=== PATIENT | female | born 1960 | race Caucasian/White ===

== ENCOUNTER 2020-06-16 15:49 | Outpatient (REF) | payer OTHER, SELFPAY ==
[2020-06-16 17:19] LABS: Anion Gap 7.7 mmol/L (3-11); BUN 22 mg/dL (7-18); CO2 30.3 mmol/L (21.0-32.0); CREATININE 1.05 mg/dL (0.55-1.02); Calcium 9.4 mg/dL (8.5-10.1); Calculated LDL 180 mg/dL (<100); Chloride 102 mmol/L (98-107); Cholesterol 263 mg/dL (<200); Estimated GFR 53.46 (mL/min/1.73m2); Glucose 107 mg/dL (74-106); HDL Cholesterol 63 mg/dL (40-60); Sodium 140 mmol/L (136-145); Triglyceride 104 mg/dL (<150)
== END 2020-06-16 16:09 ==
LOC: NCHCN 15:49
PROVIDERS: Visit Provider Nurse Practitioner Family
DX: I10 Essential (primary) hypertension (principal); E78.5 Hyperlipidemia, unspecified
CPT/HCPCS: 80048; 80061

== ENCOUNTER 2020-07-12 01:49 | Outpatient (CLI) | payer OTHER, SELFPAY ==
--- NOTE | 2020-07-12 12:49 | DI.MAMMO_ITS ---
EXAM: MG MAMMO SCREENING CLINICAL HISTORY: SCREENING, Z12.39 TECHNIQUE: Bilateral full field digital CC and MLO mammographic images were obtained with 3D tomosyn thesis and utilizing computer aided detection (CAD). COMPARISON: Available for comparison. FINDINGS: Masses/Architectural Distortion: None seen. The asymmetric density in the outer right breast has irre gular borders and measures 1.1 cm in length. It appears more prominent compared to prior examinations . Microcalcifications: No suspicious pleomorphic-type are seen. Skin Thickening/Nipple Retraction: None. IMPRESSION: 1. 1.1 cm irregular asymmetric density in the outer right breast. 2. This area should be further evaluated with spot compression views and a right breast ultrasound. BI-RADS Category 0 - Assessment Incomplete: Need additional imaging evaluation Breast Density - Category B - Scattered areas of fibroglandular density Breast density category C or D implies that the patient has dense breast tissue. Dense breast tissue is very common and is not abnormal but dense breast tissue can make it harder to find cancer on a ma mmogram. Also, dense breast tissue may increase their breast cancer risk. This information about the result of the mammogram report was provided to the patient to raise their awareness. Use this report when you speak with the patient about their risks for breast cancer, which includes their family hist ory. At that time, you may recommend for more screening tests (Ultrasound or MRI) as they might be us eful based on their risk. A negative radiographic report should not delay biopsy if a dominant or clinically suspicious mass is present. Up to ten percent of cancers are not identified on mammography. A negative report may reinforce clinical impression. Adenosis and dense breasts may obscure an underlying neoplasm. False positive reports average 6 to 10%. Patient will receive a letter notifying them of these results.
== END 2020-07-12 02:09 ==
PROVIDERS: PCP Nurse Practitioner Family; Visit Provider Nurse Practitioner Family
DX: Z12.31 Encounter for screening mammogram for malignant neoplasm of breast (principal); N64.89 Other specified disorders of breast
CPT/HCPCS: 77063; 77067

== ENCOUNTER 2020-07-21 12:27 | Outpatient (REF) | payer OTHER, SELFPAY ==
--- NOTE | 2020-07-21 11:45 | PAPFT_PTH ---
PATIENT: Malgorzata Wan LOC: [facility] U#:[id number] AGE/SX: 60/F ROOM: RE07/21/[address]: Adele Ornelas : 1960 BED: DIS: 07/21/2020 SPEC #: [id number] RECD: 07/21/20 13:03 STATUS: JIMENA MOREAU #: [id number] COOKIE: 07/21/20 11:[address]: Adele Ornelas [facility] Cytology RECD BY: Gloria Guerra Tissues: 1 - CX/ENDOCX FOR PAP SMEARS Procedures: PAP THIN PREP/UVM Screening HPV DNA PROBE Comments: [id number]
== END 2020-07-21 12:47 ==
LOC: NCHCN 12:27
PROVIDERS: PCP Nurse Practitioner Family; Visit Provider Nurse Practitioner Family
DX: Z12.4 Encounter for screening for malignant neoplasm of cervix (principal); Z00.00 Encounter for general adult medical examination without abnormal findings; Z11.51 Encounter for screening for human papillomavirus (HPV)
CPT/HCPCS: 88142; 87624

== ENCOUNTER 2020-07-27 01:24 | Outpatient (CLI) | payer OTHER, SELFPAY ==
--- NOTE | 2020-07-27 | DI.US_ITS ---
EXAM: US BREAST RT LIMITED CLINICAL HISTORY: F/U MAMMO, IRREGULAR ASYMMETRIC DENSITY OUTER RT BREAST. TECHNIQUE: Limited ultrasound of the right breast was performed. COMPARISON: Prior mammograms were reviewed. There is spot compression views were reviewed FINDINGS: There is no evidence of solid or significant cystic lesion. This implies that the nodular density is most probably a benign intramammary lymph node. IMPRESSION: As above. Appropriate follow-up is repeat right breast imaging in 6 months, distant fluid repeat rig ht breast mammogram and ultrasound. Earlier imaging would be recommended if there is a self detected breast change noted. Findings are recommendations were discussed by myself with the patient today. BI-RADS Category 3 - 6 month - Probably Benign Finding: Recommend follow-up mammography in 6 months Breast Density - Category B - Scattered areas of fibroglandular density Breast density Category C or D implies that the patient has dense breast tissue. Dense breast tissue can make it harder to find cancer on a mammogram. Dense breast tissue is also associated with an incr eased risk of breast cancer. This information about the result of the mammogram report was provided to the patient to raise their awareness. Use this report when you speak with the patient about their risks for breast cancer, which includes their family history. At that time, you may recommend additional screening tests (Ultrasoun d or MRI) as these tests may add significant information. A negative radiographic report should not delay biopsy if a dominant or clinically suspicious mass is present. Up to ten percent of cancers are not identified on mammography. A negative report may reinforce clinical impression. Adenosis and dense breasts may obscure an underlying neoplasm. False positive reports average 6 to 10%. Patient will receive a letter notifying them of these results.
--- NOTE | 2020-07-27 13:54 | DI.MAMMO_ITS ---
EXAM: MG MAMMO SCREEN CALL BACK UNI-RIGHT CLINICAL HISTORY: F/U MAMMO, IRREGULAR ASYMMETRIC DENSITY OUTER RT BREAST. TECHNIQUE: SPOT-COMPRESSION 3D VIEWS BREAST COMPARISON: Prior mammograms WERE REVIEWED. FINDINGS: Nodule persists. Has appearance of probable benign lymph node. Ultrasound of the right breast performed following today's additional mammographic views reveals no s ignificant focal findings, further evidence that it is probably benign lymph node. IMPRESSION: Benign findings as above. Appropriate follow-up is repeat right breast imaging in 6 months, this to include repeat right breast mammogram and ultrasound. Findings are recommendations were discussed by myself with the patient today. BI-RADS Category 3 - 6 month - Probably Benign Finding: Recommend follow-up mammography and ultrasoun d in 6 month Breast Density - Category B - Scattered areas of fibroglandular density Breast density Category C or D implies that the patient has dense breast tissue. Dense breast tissue can make it harder to find cancer on a mammogram. Dense breast tissue is also associated with an incr eased risk of breast cancer. This information about the result of the mammogram report was provided to the patient to raise their awareness. Use this report when you speak with the patient about their risks for breast cancer, which includes their family history. At that time, you may recommend additional screening tests (Ultrasoun d or MRI) as these tests may add significant information. A negative radiographic report should not delay biopsy if a dominant or clinically suspicious mass is present. Up to ten percent of cancers are not identified on mammography. A negative report may reinforce clinical impression. Adenosis and dense breasts may obscure an underlying neoplasm. False positive reports average 6 to 10%. Patient will receive a letter notifying them of these results.
== END 2020-07-27 01:44 ==
PROVIDERS: PCP Nurse Practitioner Family; Visit Provider Nurse Practitioner Family
DX: R92.8 Other abnormal and inconclusive findings on diagnostic imaging of breast (principal)
CPT/HCPCS: 76642; 77063; 77067

== ENCOUNTER 2021-01-30 02:12 | Outpatient (CLI) | payer OTHER, SELFPAY ==
--- NOTE | 2021-01-30 | DI.US_ITS ---
Exam(s) MG MAMMO DIAGNOSTIC UNI US BREAST RT LIMITED EXAM: US BREAST RT LIMITED CLINICAL HISTORY: F/U ABNL MAMMO, 6 MO F/U,R92.8 TECHNIQUE: Ultrasound performed using standard protocol. COMPARISON: US US BREAST RT LIMITED from 07/27/2020 FINDINGS: Right breast mammogram is interpreted in conjunction with additional mammographic views of the right breast and right breast ultrasound. Prior mammogram of June 2020 showed a vaguely nodular asymmet lionel radiodensity of the upper outer quadrant of the right breast. No definite mass was identified ma mmographically or by ultrasound examination at that time. On today's examination, the area of asymmetric density with a vaguely nodular appearance is unchanged . No new mass or clumped microcalcification in the right breast. No right breast mass or cyst ident ified on ultrasound. IMPRESSION: No specific evidence of malignancy at this time. I would suggest that routine screening examination s resume with a bilateral mammogram in 6 months. BI-RADS Cat 3 - 6 month - Probably Benign Finding: Recommend follow-up imaging in 6 months Breast Density - Category B - Scattered areas of fibroglandular density DATA REPOSITORY:
== END 2021-01-30 02:32 ==
PROVIDERS: PCP Nurse Practitioner Family; Visit Provider Nurse Practitioner Family
DX: R92.8 Other abnormal and inconclusive findings on diagnostic imaging of breast (principal)
CPT/HCPCS: 76642; 77061; 77065; G0279

== ENCOUNTER 2021-03-30 11:27 | Outpatient (CLI) | payer OTHER, SELFPAY ==
--- NOTE | 2021-03-30 | DI.RAD_ITS ---
Exam(s) XR TOE RT GREAT EXAM: XR TOE RT GREAT CLINICAL HISTORY: RT GREAT TOE PAIN, M79.676, BUNION VS STRESS FX. TECHNIQUE: 2D digital imaging was performed. COMPARISON: No exams were available for comparison FINDINGS: BONES: No acute fracture is present. No bony destructive lesion is seen. JOINTS: No dislocation present. There is mild narrowing of the 1st MTP joint. SOFT TISSUE: Normal. IMPRESSION: Mild joint space narrowing of the 1st MTP joint. DATA REPOSITORY: RADIATION DOSE DELIVERED:
== END 2021-03-30 11:47 ==
PROVIDERS: PCP Nurse Practitioner Family; Visit Provider Physician Assistant Medical
DX: M79.676 Pain in unspecified toe(s) (principal); M19.071 Primary osteoarthritis, right ankle and foot
CPT/HCPCS: 73660

== ENCOUNTER → 2022-02-14 02:05 | Outpatient (CLI) | payer OTHER, SELFPAY ==
--- NOTE | 2022-02-14 08:30 | DI.MAMMO_ITS ---
Exam(s) MAMMO SCREENING EXAM: MAMMO SCREENING CLINICAL HISTORY: SCREENING, Z12.39 TECHNIQUE: Bilateral full field digital CC and MLO mammographic images were obtained with 3D tomosyn thesis and utilizing computer aided detection (CAD). COMPARISON: Available for comparison. FINDINGS: Left breast: Masses/Architectural Distortion: None seen. Microcalcifications: No suspicious pleomorphic-type are seen. Skin Thickening/Nipple Retraction: None. Right breast: Masses/Architectural Distortion: Stable circumscribed nodule lateral right breast. Microcalcifications: No suspicious pleomorphic-type are seen. Skin Thickening/Nipple Retraction: None. IMPRESSION: 1. No significant interval change with no specific features of malignancy noted. 2. Unless there is more urgent need, screening mammography is recommended, as per [place] [employer] guidelines. BI-RADS Category 2 - Benign Findings Breast Density - Category B - Scattered areas of fibroglandular density A negative radiographic report should not delay biopsy if a dominant or clinically suspicious mass is present. Up to ten percent of cancers are not identified on mammography. A negative report may reinforce clinical impression. Adenosis and dense breasts may obscure an underlying neoplasm. False positive reports average 6 to 10%. Patient will receive a letter notifying them of these results.
== END ==
PROVIDERS: PCP Nurse Practitioner Family; Visit Provider Nurse Practitioner Family
DX: Z12.31 Encounter for screening mammogram for malignant neoplasm of breast (principal)
CPT/HCPCS: 77063; 77067

== ENCOUNTER 2022-02-21 16:14 | Outpatient (REF) | payer OTHER, SELFPAY ==
[2022-02-21 19:44] LABS: Anion Gap 9.2 mmol/L (3-11); BUN 23 mg/dL (7-18); CO2 29.8 mmol/L (21.0-32.0); CREATININE 1.1 mg/dL (0.55-1.02); Calcium 9.3 mg/dL (8.5-10.1); Calculated LDL 181 mg/dL (<100); Chloride 100 mmol/L (98-107); Cholesterol 266 mg/dL (<200); Glucose 105 mg/dL (74-106); HDL Cholesterol 72 mg/dL (40-60); Potassium 3.7 mmol/L (3.5-5.1); Sodium 139 mmol/L (136-145); Triglyceride 67 mg/dL (<150)
== END 2022-02-21 16:15 | disposition home or self-care (01) ==
LOC: NCHCN 16:14
PROVIDERS: PCP Nurse Practitioner Family; Visit Provider Nurse Practitioner Family
DX: I10 Essential (primary) hypertension (principal); E78.5 Hyperlipidemia, unspecified
CPT/HCPCS: 80048; 80061

== ENCOUNTER → 2023-02-17 01:38 | Outpatient (CLI) | payer OTHER, SELFPAY ==
--- NOTE | 2023-02-17 | DI.MAMMO_ITS ---
Exam(s) MAMMO SCREENING EXAM: MAMMO SCREENING CLINICAL HISTORY: SCREENING, Z12.39. TECHNIQUE: Bilateral full field digital CC and MLO mammographic images were obtained with 3D tomosyn thesis and utilizing computer aided detection (CAD). COMPARISON: Prior mammograms dating back to 2017 were reviewed. FINDINGS: No new left breast findings. Right breast previously present nodular density appears to have slightly increased in size on the MLO view, presently measuring 10 by a 7 mm, this located 5 cm in from the nipple on the MLO view. No malignant-appearing microcalcification groups in this region or elsewhere in either breast. There is no significant architectural distortion nor skin thickening-retraction. IMPRESSION: 1. No radiographic evidence of malignancy in left breast. 2. Slight increase in size of right breast nodule. Spot compression view and ultrasound recommended BI-RADS Category 0 - Assessment Incomplete: Need additional imaging evaluation Breast Density - Category B - Scattered areas of fibroglandular density Breast density Category C or D implies that the patient has dense breast tissue. Dense breast tissue can make it harder to find cancer on a mammogram. Dense breast tissue is also associated with an incr eased risk of breast cancer. This information about the result of the mammogram report was provided to the patient to raise their awareness. Use this report when you speak with the patient about their risks for breast cancer, which includes their family history. At that time, you may recommend additional screening tests (Ultrasoun d or MRI) as these tests may add significant information. A negative radiographic report should not delay biopsy if a dominant or clinically suspicious mass is present. Up to ten percent of cancers are not identified on mammography. A negative report may reinforce clinical impression. Adenosis and dense breasts may obscure an underlying neoplasm. False positive reports average 6 to 10%. Patient will receive a letter notifying them of these results.
== END ==
PROVIDERS: PCP Nurse Practitioner Family; Visit Provider Nurse Practitioner Family
DX: Z12.31 Encounter for screening mammogram for malignant neoplasm of breast (principal)
CPT/HCPCS: 77063; 77067

== ENCOUNTER → 2023-02-26 00:52 | Outpatient (CLI) | payer OTHER, SELFPAY ==
--- NOTE | 2023-02-26 | DI.MAMMO_ITS ---
Exam(s) MAMMO SCREEN CALL BACK UNI EXAM: MAMMO SCREEN CALL BACK UNI CLINICAL HISTORY: F/U MAMMO, SLIGHT INCREASE IN SIZE RT BREAST NODULE TECHNIQUE: Spot compression views with tomographic imaging were performed. COMPARISON: 2016 through 2021 FINDINGS: No suspicious masses or suspicious microcalcifications are seen. No persistent suspicious abnormality is seen on the additional views performed. The findings are con sistent with overlying fibroglandular tissue. Stable area of nodularity again noted in the upper out er quadrant There has been no significant change from prior exams. IMPRESSION: BI-RADS Cat 2 - Benign Findings Yearly screening mammography is recommended. Breast Density - Category B, scattered fibroglandular densities.
== END ==
PROVIDERS: PCP Nurse Practitioner Family; Visit Provider Nurse Practitioner Family
DX: Z12.31 Encounter for screening mammogram for malignant neoplasm of breast (principal); R92.8 Other abnormal and inconclusive findings on diagnostic imaging of breast
CPT/HCPCS: 77063; 77067

== ENCOUNTER 2023-03-12 20:10 | Outpatient (REF) | payer OTHER, SELFPAY ==
[2023-03-12 19:32] LABS: ALT 23 U/L (14-59); AST 17 U/L (15-37); Alkaline Phosphatase 87 U/L (46-116); Anion Gap 7.7 mmol/L (3-11); BUN 19 mg/dL (7-18); Bilirubin, Total 0.4 mg/dL (0.2-1.0); CO2 30.3 mmol/L (21.0-32.0); Calcium 9.3 mg/dL (8.5-10.1); Calculated LDL 185 mg/dL (<100); Chloride 100 mmol/L (98-107); Cholesterol 272 mg/dL (<200); Glucose 109 mg/dL (74-106); HDL Cholesterol 70 mg/dL (40-60); Potassium 3.5 mmol/L (3.5-5.1); Sodium 138 mmol/L (136-145); Total Protein 7.9 g/dL (6.4-8.2); Triglyceride 87 mg/dL (<150)
== END 2023-03-12 20:11 | disposition home or self-care (01) ==
LOC: NCHCN 20:10
PROVIDERS: PCP Nurse Practitioner Family; Visit Provider Nurse Practitioner Family
DX: I10 Essential (primary) hypertension (principal); E78.5 Hyperlipidemia, unspecified
CPT/HCPCS: 80053; 80061

== ENCOUNTER → 2023-10-01 02:38 | Outpatient (CLI) | payer OTHER, SELFPAY ==
--- NOTE | 2023-10-01 | DI.RAD_ITS ---
Exam(s) XR KNEE LT 4V AP,LAT,SHAUN,PAT EXAM: XR KNEE LT 4V AP,LAT,SHAUN,PAT CLINICAL HISTORY: LT KNEE PAIN, M25.562,?ARTHRITIS PATELLA. TECHNIQUE: 2D digital imaging was performed of the left knee. Four images were obtained. Merchant, AP, lateral and PA tunnel views were obtained. COMPARISON: No exams were available for comparison FINDINGS: BONES: No acute fracture is present. No bony destructive lesion is seen. JOINTS: Degenerative changes are seen involving all 3 joint compartments characterized by some degree of joint space narrowing with osteophyte. There is a small joint effusion. No loose body. SOFT TISSUE: Normal. IMPRESSION: Mild degenerative changes of the left knee. DATA REPOSITORY: RADIATION DOSE DELIVERED:
== END ==
PROVIDERS: PCP Nurse Practitioner Family; Visit Provider Student in an Organized Health Care Education/Training Program
DX: M25.562 Pain in left knee (principal); M25.462 Effusion, left knee; M17.12 Unilateral primary osteoarthritis, left knee
CPT/HCPCS: 73564

== ENCOUNTER 2024-02-25 01:41 | Outpatient (CLI) | payer OTHER, SELFPAY ==
--- NOTE | 2024-02-25 | DI.MAMMO_ITS ---
Exam(s) MAMMO SCREENING EXAM: MAMMO SCREENING CLINICAL HISTORY: SCREENING,Z12.31. TECHNIQUE: Bilateral full field digital CC and MLO mammographic images were obtained with 3D tomosyn thesis and utilizing computer aided detection (CAD). COMPARISON: Prior mammograms were reviewed. Prior breast ultrasound of 07/27/2020 was reviewed FINDINGS: There has been no significant change in the appearance and distribution of the fibroglandular tissue. Asymmetric density-nodule in lateral aspect right breast is unchanged prior studies. This was not ev ident on prior ultrasound examination and therefore most probably represents a benign intramammary ly mph node. There are no new spiculated masses nor new malignant appearing microcalcification groups. There is no significant architectural distortion nor skin thickening-retraction. IMPRESSION: Stable benign-appearing findings. No radiographic evidence of malignancy. BI-RADS Category 2 - Benign Findings Breast Density - Category B - Scattered areas of fibroglandular density Breast density Category C or D implies that the patient has dense breast tissue. Dense breast tissue can make it harder to find cancer on a mammogram. Dense breast tissue is also associated with an incr eased risk of breast cancer. This information about the result of the mammogram report was provided to the patient to raise their awareness. Use this report when you speak with the patient about their risks for breast cancer, which includes their family history. At that time, you may recommend additional screening tests (Ultrasoun d or MRI) as these tests may add significant information. A negative radiographic report should not delay biopsy if a dominant or clinically suspicious mass is present. Up to ten percent of cancers are not identified on mammography. A negative report may reinforce clinical impression. Adenosis and dense breasts may obscure an underlying neoplasm. False positive reports average 6 to 10%. Patient will receive a letter notifying them of these results.
== END 2024-02-25 02:01 ==
LOC: DI 01:42
PROVIDERS: PCP Nurse Practitioner Family; Visit Provider Nurse Practitioner Family
DX: Z12.31 Encounter for screening mammogram for malignant neoplasm of breast (principal)
CPT/HCPCS: 77063; 77067

== ENCOUNTER 2024-12-20 03:00 | Outpatient (CLI) | payer OTHER, SELFPAY ==
[2024-12-20 12:18] LABS: Abs Immature Grans 0.01 10^3/uL (0.0-0.06); Absolute Basophil Count 0.07 10^3/uL (0.0-0.2); Absolute Eosinophil Count 0.55 10^3/uL (0.0-0.7); Absolute Lymphocyte Count 1.73 10^3/uL (1.2-3.4); Absolute Neutrophil Count 3.08 10^3/uL (1.2-6.7); Basophils % 1.2 %; Eosinophils % 9.3 %; HCT 43.5 % (36.0-46.0); HGB 14.4 g/dL (11.2-15.7); Immature Grans % 0.2 %; Lymphocytes % 29.1 %; MCH 28.8 pg (27.0-33.0); MCHC 33.1 % (32.0-36.0); MCV 87 fL (80-95); Monocytes % 8.4 %; Neutrophils % 51.8 %; Platelet Count 262 10^3/uL (130-400); RDW 12.3 % (11.7-14.6); RDW-SD 38.9 fL; WBC 5.94 10^3/uL (4.4-10.8)
[2024-12-20 12:30] LABS: Hemoglobin A1C 5.7 % (<5.7)
[2024-12-20 12:40] LABS: ALT 29 U/L (14-59); AST 18 U/L (15-37); Albumin 3.8 g/dL (3.4-5.0); Alkaline Phosphatase 98 U/L (46-116); Anion Gap 4.7 mmol/L (3-11); BUN 20 mg/dL (7-18); Bilirubin, Total 0.3 mg/dL (0.2-1.0); CO2 32.3 mmol/L (21.0-32.0); CREATININE 1.2 mg/dL (0.55-1.02); Calcium 9.1 mg/dL (8.5-10.1); Calculated LDL 202 mg/dL (<100); Chloride 103 mmol/L (98-107); Cholesterol 286 mg/dL (<200); Estimated GFR 50.55 (mL/min/1.73m2); Glucose 121 mg/dL (74-106); HDL Cholesterol 66 mg/dL (>or=50); Potassium 3.4 mmol/L (3.5-5.1); Sodium 140 mmol/L (136-145); TSH (W/Ref FT4) 6.64 uIU/mL (0.36-3.74); Total Protein 7.5 g/dL (6.4-8.2); Triglyceride 90 mg/dL (<150)
[2024-12-20 12:59] LABS: FREE T4 0.88 ng/dL (0.76-1.46)
== END 2024-12-20 03:01 | disposition home or self-care (01) ==
LOC: LOS 03:00
PROVIDERS: PCP Nurse Practitioner Family; Visit Provider Nurse Practitioner Family
DX: E78.5 Hyperlipidemia, unspecified (principal); I10 Essential (primary) hypertension
CPT/HCPCS: 36415; 80053; 80061; 83036; 84439; 84443; 85025

== ENCOUNTER 2025-03-01 16:09 | Outpatient (CLI) | payer OTHER, SELFPAY ==
--- NOTE | 2025-03-01 07:00 | DI.MAMMO_ITS ---
Exam(s) MAMMO SCREENING EXAM: MAMMO SCREENING CLINICAL HISTORY: screening,z12.39 TECHNIQUE: Bilateral full field digital CC and MLO mammographic images were obtained with 3D tomosynthesis and utilizing computer aided detection (CAD). COMPARISON: Comparison is made with prior examinations. FINDINGS: Masses/Architectural Distortion: No suspicious masses or areas of architectural distortion are present. The nodule in the upper outer quadrant of the right breast appears stable. Microcalcifications: No suspicious pleomorphic-type are seen. Skin Thickening/Nipple Retraction: None. IMPRESSION: 1. No significant interval change with no specific features of malignancy noted. 2. Unless there is more urgent need, screening mammography is recommended, as per [place] guidelines. BI-RADS Category 2 - Benign Findings Breast Density - Category B - There are scattered areas of fibroglandular density. Breast density Category C or D implies that the patient has dense breast tissue. Dense breast tissue can make it harder to find cancer on a mammogram. Dense breast tissue is also associated with an increased risk of breast cancer. This information about the result of the mammogram report was provided to the patient to raise their awareness. Use this report when you speak with the patient about their risks for breast cancer, which includes their family history. At that time, you may recommend additional screening tests (Ultrasound or MRI) as these tests may add significant information. A negative radiographic report should not delay biopsy if a dominant or clinically suspicious mass is present. Up to ten percent of cancers are not identified on mammography. A negative report may reinforce clinical impression. Adenosis and dense breasts may obscure an underlying neoplasm. False positive reports average 6 to 10%. Patient will receive a letter notifying them of these results.
== END 2025-03-01 16:29 ==
LOC: DI 16:09
PROVIDERS: PCP Nurse Practitioner Family; Visit Provider Nurse Practitioner Family
DX: Z12.31 Encounter for screening mammogram for malignant neoplasm of breast (principal); R92.323 Mammographic fibroglandular density, bilateral breasts
CPT/HCPCS: 77063; 77067

== ENCOUNTER 2025-06-17 15:18 | Outpatient (REF) | payer BC, SELFPAY ==
[2025-06-17 15:56] LABS: Abs Immature Grans 0.02 10^3/uL (0.0-0.06); HCT 42.5 % (36.0-46.0); HGB 14.1 g/dL (11.2-15.7); Immature Grans % 0.3 %; MCH 28.5 pg (27.0-33.0); MCHC 33.2 % (32.0-36.0); MCV 86 fL (80-95); MPV 10.6 fL (8.0-11.0); Platelet Count 267 10^3/uL (130-400); RBC 4.95 10^6/uL (3.93-5.22); RDW 12.1 % (11.7-14.6); RDW-SD 38.0 fL; WBC 7.25 10^3/uL (4.4-10.8)
[2025-06-17 16:08] LABS: Uric Acid 6.5 mg/dL (3.1-7.8)
== END 2025-06-17 15:19 | disposition home or self-care (01) ==
LOC: LBN 15:18
PROVIDERS: PCP Nurse Practitioner Family; Visit Provider Nurse Practitioner Family
DX: M10.9 Gout, unspecified (principal)
CPT/HCPCS: 84550; 85025

== ENCOUNTER → 2025-06-18 11:27 | Outpatient (CLI) | payer BC, SELFPAY ==
--- NOTE | 2025-06-18 11:15 | DI.RAD_ITS ---
Exam(s) XR FOOT RT LIMITED EXAM: XR FOOT RT LIMITED CLINICAL HISTORY: eval pathology, M79.674 Pain in right toe(s). TECHNIQUE: 2D digital imaging was performed of the right foot. Two images were obtained. AP, oblique and lateral views were obtained. COMPARISON: CR XR TOE RT GREAT from 03/30/2021 FINDINGS: BONES: No acute fracture is present. No bony destructive lesion is seen. There is an enthesophyte at the posterior calcaneus. There is a small plantar calcaneal spur. JOINTS: No dislocation present. Mild degenerative changes are seen at the 1st MTP joint. The joint spaces are otherwise well maintained. SOFT TISSUE: There is mild soft tissue swelling of the forefoot. No radiopaque foreign body is identified. Vascular calcifications are present. IMPRESSION: 1. There is no acute fracture or dislocation. 2. The preliminary [facility] report was reviewed. DATA REPOSITORY: RADIATION DOSE DELIVERED:
--- NOTE | 2025-06-18 12:30 | DI.[facility]_ITS ---
PROCEDURE INFORMATION: Exam: XR Right Toe(s) Exam date and time: 06/18/2025 11:35 AM Age: 65 years old Clinical indication: Pain; Toes; Right; Additional info: PT stated no injury occurred and has been having pain x7 days TECHNIQUE: Imaging protocol: Radiologic exam of the right toes. Views: Minimum 2 views. COMPARISON: CR XR TOE RT GREAT 03/30/2021 12:04 PM FINDINGS: Bones/joints: No acute or suspicious osseous abnormalities. No articular abnormalities. Small plantar calcaneal spur. Small bony projection at the Achilles tendon insertion site. Soft tissues: Mild soft tissue swelling of the dorsum of forefoot. IMPRESSION: 1. Mild soft tissue swelling of the dorsum of forefoot. 2. Small plantar calcaneal spur. 3. Enthesopathy at the Achilles tendon insertion site. Dictated and Authenticated by: Tereza Collins MD. Orderin Tony Carrillo MD
== END ==
PROVIDERS: PCP Nurse Practitioner Family; Visit Provider Nurse Practitioner Family
DX: M79.674 Pain in right toe(s) (principal)
CPT/HCPCS: 73620

== ENCOUNTER 2025-06-20 01:59 | Outpatient (CLI) | payer BC, SELFPAY ==
[2025-06-20 15:03] LABS: TSH (W/Ref FT4) 4.76 uIU/mL (0.55-4.78)
[2025-06-20 15:10] LABS: Anion Gap 8.6 mmol/L (3-11); BUN 25 mg/dL (9-23); CO2 32.4 mmol/L (20.0-31.0); Calcium 9.8 mg/dL (8.3-10.6); Chloride 104 mmol/L (98-107); Cholesterol 180 mg/dL (<200); Glucose 97 mg/dL (74-106); HDL Cholesterol 70 mg/dL (>or=50); Potassium 3.8 mmol/L (3.5-5.1); Sodium 145 mmol/L (136-145)
== END 2025-06-20 02:00 | disposition home or self-care (01) ==
PROVIDERS: PCP Nurse Practitioner Family; Visit Provider Nurse Practitioner Family
DX: E78.5 Hyperlipidemia, unspecified (principal); I10 Essential (primary) hypertension
CPT/HCPCS: 36415; 80048; 80061; 84443